=== PATIENT | male | born 1955 | race Caucasian/White ===

== ENCOUNTER → 2017-09-25 | Outpatient (CLI) | payer BC ==
[2014-09-20 10:53] VITALS: BP 204/100
[2017-09-25 13:04] LABS: BASO # 0.2 x10^3/uL (0.0-0.2); BASO % 1 % (0-3); EOS # 0.2 x10^3/uL (0.0-0.7); EOS % 2 % (0-3); HEMATOCRIT 50.5 % (39.0-53.0); HEMOGLOBIN 17.2 g/dL (13.0-17.5); LYMPH # 1.5 x10^3/uL (1.0-4.8); LYMPH % 9 % (24-48); MEAN CORPUSCULAR HEMOGLOBIN 29 pg (25-35); MEAN CORPUSCULAR HGB CONC 34 g/dL (31-37); MEAN CORPUSCULAR VOLUME 84 fL (79-100); MONO # 1.5 x10^3/uL (0.0-1.1); MONO % 9 % (0-9); NEUT # 13.2 x10^3uL (1.8-7.7); NEUT % 79 % (31-73); PLATELET COUNT 168 x10^3/uL (140-400); RED BLOOD COUNT 6.04 x10^6/uL (4.30-5.70); RED CELL DISTRIBUTION WIDTH 13.6 % (11.5-14.5); WHITE BLOOD COUNT 16.6 x10^3/uL (4.0-11.0)
[2017-09-25 13:12] LABS: ALBUMIN 3.7 g/dL (3.4-5.0); ALBUMIN/GLOBULIN RATIO 0.8 (1.0-1.7); CREATININE 1.1 mg/dL (0.7-1.3); GFR 67.4; POTASSIUM 3.8 mmol/L (3.5-5.1); TOTAL BILIRUBIN 1.7 mg/dL (0.2-1.0); TOTAL PROTEIN 8.1 g/dL (6.4-8.2)
[2017-09-25 13:55] LABS: % BANDS 4 % (0-9); % BASOS 1 % (0-3); % EOS 3 % (0-5); % LYMPHS 8 % (24-48); % MONOS 9 % (0-10); % SEGS 68 % (35-66)
[2017-09-25 13:56] LABS: PLT ESTIMATE ADEQUATE (ADEQUATE)
[2017-09-25 14:17] LABS: SEDIMENTATION RATE 18 (0-15)
== END | disposition home or self-care (01) ==
LOC: PMG 12:17
PROVIDERS: ATTEND General Practice
DX: R10.33 Periumbilical pain (principal)
CPT/HCPCS: 36415; 80053; 82150; 83690; 85007; 85025; 85651

== ENCOUNTER → 2020-10-21 | Outpatient (CLI) | payer MEDICARE ==
[2014-09-20 10:53] VITALS: BP 204/100
--- NOTE | 2020-10-21 17:02 | RAD ---
EXAM: Right shoulder, 3 views. HISTORY: Pain. COMPARISON: 05/30/2015 FINDINGS: 3 views of the right shoulder obtained. There is no fracture, dislocation or subluxation. T here is acromioclavicular joint subchondral sclerosis and spurring. This includes and anteriorly dire cted distal clavicular spur. There is mild inferior glenohumeral spurring. IMPRESSION: 1. Mild to moderate acromial posterior and mild glenohumeral osteoarthritis. This is stable to minima lly progressed compared to the prior study. 2. No acute osseous finding. Electronically signed by: Sandi Santiago MD (10/21/2020 4:59 PM) [id number]
== END ==
LOC: DXRAD 11:09
DX: M19.011 Primary osteoarthritis, right shoulder (principal)
CPT/HCPCS: 73030

== ENCOUNTER → 2021-10-06 | Outpatient (CLI) | payer MEDICARE ==
[2014-09-20 10:53] VITALS: BP 204/100
--- NOTE | 2021-10-06 08:38 | RAD ---
EXAM: ULTRASOUND ABDOMINAL AORTA. CLINICAL HISTORY: Reason: AAA SCREENING, HX OF SMOKING X 3O YEARS, HTN / Spl. Instructions: / Histor y: COMPARISON: None available. TECHNIQUE: The abdominal aorta was examined from the diaphragm to the proximal common iliac arteries. FINDINGS: The IVC appears patent, not well seen. The abdominal aorta and the common iliac arteries are complete ly obscured due to patient body habitus and overlying bowel gas. IMPRESSION: The abdominal aorta and common iliac arteries are completely obscured due to overlying bowel gas. Electronically signed by: Kyle Beaver MD (10/06/2021 8:36 AM) [id number]
== END ==
LOC: US 07:55
PROVIDERS: ATTEND Family Medicine
DX: Z00.00 Encounter for general adult medical examination without abnormal findings (principal); Z82.49 Family history of ischemic heart disease and other diseases of the circulatory system
CPT/HCPCS: 76770